=== PATIENT | male | born 1990 | race Caucasian/White ===

== ENCOUNTER 2021-01-28 16:57 | Emergency (ER) | payer SELFPAY ==
[2021-01-28 17:10] VITALS: TEMP 98.8; BMI 34.0
[2021-01-28] MEDS ORDERED: IBUPROFEN 600 MG TABLET (FP) PO ONE ×2 (17:24→17:44)
[2021-01-28 18:06] VITALS: BP 140/89; PULSE 90
== END 2021-01-28 18:06 | disposition home or self-care (01) ==
LOC: JERFT 16:57
PROC: 0HQDXZZ Repair Right Lower Arm Skin, External Approach (ICD-10-PCS; principal; 2021-01-28)
DX: S51.811A Laceration without foreign body of right forearm, initial encounter (principal)
CPT/HCPCS: 99284-25

== ENCOUNTER 2021-02-07 19:10 | Emergency (ER) | payer SELFPAY ==
[2021-02-07 19:39] VITALS: BP 123/82; PULSE 106; TEMP 98.8; BMI 32.9
== END 2021-02-07 20:00 | disposition home or self-care (01) ==
LOC: JER 19:10 → JERFT 19:10
DX: Z48.02 Encounter for removal of sutures (principal)
CPT/HCPCS: 99281-25